=== PATIENT | female | born 1995 | race American Indian/Alaskan Native ===

== ENCOUNTER 2022-05-07 20:53 | Emergency (ER) | payer MEDICAID ==
[2022-05-07 21:06] VITALS: BP 146/90
[2022-05-07] MEDS ORDERED: ACETAMINOPHEN 500 MG TAB PO ONE (21:08)
== END 2022-05-08 11:39 | disposition left against medical advice (07) ==
LOC: ED 20:53
DX: R06.02 Shortness of breath (principal); Z53.21 Procedure and treatment not carried out due to patient leaving prior to being seen by health care provider